=== PATIENT | male | born 1955 | race Two or more races ===

== ENCOUNTER 2024-01-23 09:09 | Outpatient (RCR) | payer MEDICARE, SELFPAY ==
--- NOTE | 2024-01-24 06:24 | CTCFLWUP_ITS ---
[address] [address] FOLLOW UP NOTE DATE OF VISIT: 01/23/2024 NAME: VASQUEZ ASTORGA MR#: [id number] : 1955 AGE: 68 DIAGNOSIS: Left lower extremity DVT and PE currently on Lovenox. 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 S/p s/p intramedullary nailing of the right femur fracture caused by metastatic lesion (06/02/2021). S/p radiation therapy to the right femur (07/28/2021 - 08/10/2021). Mr. Astorga received 3000 cGy radiat ion therapy. Left kidney clear-cell type renal cell carcinoma status post left nephrectomy 10/13/2003) Started on pembrolizumab and axitinib (09/23/2021?). Patient unable to tolerate axitinib. Currently he is being continued on pembrolizumab. 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 Currently he is on levothyroxine. REASON FOR TODAY?S VISIT: This is office follow-up visit. Mr. Astorga is here at [facility]. Patient complaining of nerve pain to bilateral feet, more on right inner ankle area, declini ng medication, plans to restart physical therapy soon which he found helpful previously. Patient fol lows up with Dr. Beltrán, taking hydrocodone as needed. MRI of abdomen with and without contrast showed benign right renal cyst, no abdominal lymphadenopathy. Patient on indefinite lovenox 120 mg daily fo r history of left lower DVT and PE on 10/05/2022, previously failed on Eliquis. Left lower extremity u ltrasound venous Doppler showed chronic nonocclusive thrombus in the left popliteal vein, (09/14/2023) . Patient on Xgeva monthly, last time patient received pembrolizumab was in 08/17/2023. Patient is t aking levothyroxine 225 mg daily, unfortunately we do not have recent thyroid labs. Patient would li ke to restart pembrolizumab. Patient reports he was taking a break due to recent of brother. Patient reports good appetite, does complain of feeling tired. Patient denies any cough, chest pain , abdominal pain, leg cramps, weight loss. Patient ambulating with help of a cane. HISTORY OF PRESENT ILLNESS: Vasquez Astorga is a 68-year-old ENG speaking male with following oncology history. 10/13/2003: Mr. Astorga had right nephrectomy for clear-cell type renal cell carcinoma? 05/31/2021: Mr. Astorga fell and injured his right thigh. X-rays were obtained 05/31/2021: CT scan of the pelvis without contrast 06/01/2021: CT scan of the chest abdomen and pelvis without contrast? 06/02/2021: Patient had intramedullary nailing of the right femur fracture with diagnostic biopsy of th e fracture. 07/28/2021 - 08/10/2021: Mr. Astorga had 3000 cGy radiation therapy to the right femur. 07/30/2021: PET/CT scan? 09/27/2021: CT scan of the chest with and without contrast? 04/05/2022: CT scan of the chest abdomen and pelvis with IV contrast 07/04/2022: Left lower extremity venogram? Mr. Astorga was started on Eliquis and discharged home 07/26/2022: Doppler ultrasound study of both lower extremities Eliquis was discontinued. Patient was started on Lovenox 120 mg SQ twice daily. 10/05/2022: CT scan of the chest abdomen and pelvis with IV contrast 11/14/2022: Bilateral lower EXTR. Doppler ultrasound study done PAST MEDICAL HISTORY: HTN High cholesterol Left kidney cancer- 2003 PAST SURGICAL HISTORY: Left nephrectomy - 2003 Nailing of Right Femur Fracture with biopsy - 08/24/21 TURP - 6 yrs ago [facility] MEDICATIONS: calcium Cozaar [losartan potassium] [place] 3 [omega-3 fatty acids/dha/epa/other omega-3s/fish oil] ibuprofen Vitamin D3 [cholecalciferol (vitamin d3)] hydroCHLOROthiazide betamethasone valerate HYDROcodone-acetaminophen MS Contin [morphine sulfate] enoxaparin levothyroxine Medication last reconciled by Gina RODRIGUEZ on 12/05/2023 ALLERGIES: Simvastatin REVIEW OF SYSTEMS Neurological: No headache, seizures or blurring of vision. Gastrointestinal: No nausea, vomiting, diarrhea or constipation. Cardiovascular: No palpitations or angina pains. Respiratory: No cough, chest pain or shortness of breath. VITAL SIGNS: Date Time PHYSICAL EXAMINATION: Conjunctivae is white Oral cavity: No Lesions. Chest is clear to auscultation. No wheezes or rales audible. CVS: Rhythm regular, no murmurs. Abdomen is soft. No hepatosplenomegaly. Extremities: No pedal edema. No cyanosis. Ambulating with assistance of cane. LABORATORY DATA: Date Time ASSESSMENT AND PLAN: #1. Left kidney clear-cell type renal cell carcinoma status post left nephrectomy 10/13/2003 Metastatic clear-cell renal cell carcinoma with bone mets and possible pulmonary mets (06/02/2021). S/p intramedullary nailing of the right femur fracture caused by metastatic lesion (06/02/2021). S/p radiation therapy to the right femur (07/28/2021 - 08/10/2021). Mr. Astorga received 3000 cGy radiat ion therapy. Patient was on pembrolizumab and axitinib (09/23/2021?08/17/2023). Patient unable to tolerate axitin ib. Currently on break from pembrolizumab, last time patient received medication was on 08/17/2023. Patie nt was taking a break from medication, patient was on bereavement due to of patient's brother. He wants to restart keytruda in feb 2024 Continue Xgeva (09/23/2021?) MRI of abdomen with and without contrast showed benign right renal cyst, 10/02/2023.. Restart pembrolizumab. Brain MRI with and without contrast is negative . Follow-up with Dr. Perry in 3 weeks. #2. Hypothyroidism likely from immunotherapy pembrolizumab. Currently he is on levothyroxine 225mg daily. TSH was 27.09 and T4 was 1.32, (10/24/2023). No recent thyroid labs. TSH and T4 today. Repeat TSH and T4 a few days prior to follow-up appointment. Refer to endocrinology #3. Bilateral feet peripheral neuropathy, more on right anterior ankle, declining medication, tolerab le. Patient planning to restart physical therapy for right leg that he has previously found helpful. Following up with Dr. Beltrán, thanks hydrocodone as needed for pain. #2. Left lower extremity DVT and PE, (10/05/2022). Currently on indefinite anticoagulation, continue Lovenox 120mg subcutaneous daily. Patient previously declined to continue with Lovenox 120 mg subcutaneous twice daily due to high copa yment cost. Failed on Eliquis. Ultrasound venous Doppler left lower extremity showed chronic nonocclusive thrombus in the left popli teal vein, (09/14/2023). Wears compression stockings. Electronically Signed by: {Object.Sanct_ID2*PnP.NameFL}, {Object.Sanct_ID2*PnP.Suffix} on {Object.Emery ct_Date2@d01b} at {Object.Sanct_Time2@t3b} cc: Gabby Seay, Referring: Roman Seay This document was completed utilizing speech recognition software. Grammatical errors, random word in sertions, pronoun errors, and incomplete sentences are an occasional consequence of this system due t o software limitations, ambient noise, and hardware issues. Any formal questions or concerns about e content, text or information contained within the body of this dictation should be directly address ed to the provider for clarification. Patient: VASQUEZ ASTORGA : 1955 MR#: [id number] FOLLOW UP NOTE Page 1 of 14
== END 2024-01-27 23:59 | disposition home or self-care (01) ==
LOC: SCTC 09:09
PROVIDERS: PCP Specialist; Referring Provider Specialist; Visit Provider Internal Medicine Hematology & Oncology
DX: C64.2 Malignant neoplasm of left kidney, except renal pelvis (principal); C79.51 Secondary malignant neoplasm of bone; Z86.718 Personal history of other venous thrombosis and embolism; Z79.01 Long term (current) use of anticoagulants; Z92.3 Personal history of irradiation; E03.9 Hypothyroidism, unspecified; G62.9 Polyneuropathy, unspecified
CPT/HCPCS: 99212; G0463

== ENCOUNTER 2024-03-14 08:40 | Outpatient (RCR) | payer MEDICARE, SELFPAY ==
[2024-03-04 16:16] LABS: Basophils % (Auto) 1 % (0-2.5); Eosinophils # (Auto) 0.2 Thou/mm3 (0.0-0.5); Eosinophils % (Auto) 3 % (0-10); Hematocrit 43.9 % (41.0-53.0); Hemoglobin 15.2 g/dL (13.5-16.0); Immature Granulocytes % (Auto) 0 % (0-0); Immature Granulocytes Auto 0.02 Thou/mm3 (0.00-0.00); Lymphocytes # (Auto) 1.6 Thou/mm3 (1.0-4.8); Lymphocytes % (Auto) 24 % (10-50); Mean Corpuscular HGB Conc 34.6 g/dl (31.0-37.0); Mean Corpuscular Hemoglobin 30.6 pg (25.0-35.0); Mean Corpuscular Volume 89 fL (80-100); Monocytes % (Auto) 15 % (0-12); Neutrophils # (Auto) 3.9 Thou/mm3 (1.8-7.7); Neutrophils % (Auto) 57 % (37-80); Nucleated Red Blood Cell % 0 /100 WBC (0); Platelet Count 179 Thou/mm3 (140-440); RDW Standard Deviation 45.2 fL (35.1-43.9); Red Blood Count 4.96 Miln/mm3 (4.50-5.90); White Blood Count 6.8 Thou/mm3 (3.8-10.6)
[2024-03-04 16:37] LABS: Alanine Aminotransferase 17 U/L (10-49); Albumin, Serum 4.3 gm/dL (3.4-4.8); Albumin/Globulin Ratio 1.5 (1.2-2.2); Alkaline Phosphatase 83 U/L (46-116); Anion Gap 9 (7-16); Aspartate Amino Transferase 19 U/L (0-34); BUN/Creatinine Ratio 15 Ratio (12-20); Bilirubin,Total 0.6 mg/dL (0.3-1.2); Blood Urea Nitrogen 16 mg/dL (9-23); Calcium 9.7 mg/dL (8.3-10.6); Calcium (Corrected) 9.7 mg/dL (8.5-10.1); Carbon Dioxide 24.7 mMol/L (20.0-31.0); Chloride 103 mMol/L (98-107); Creatinine (Component) 1.1 mg/dL (0.6-1.3); Free T4 (Free Thyroxine) 1.57 ng/dL (0.89-1.76); Globulin 2.9 gm/dL (2.3-3.5); Glucose 96 mg/dL (74-106); Osmolality,Calculated 275 (275-295); Potassium 3.8 mMol/L (3.4-5.1); Sodium 137 mMol/L (136-145); Thyroid Stimulating Hormone 5.05 uIU/mL (0.55-4.78); Total Protein 7.2 gm/dL (5.7-8.2); eGFR > 60 See Note
--- NOTE | 2024-03-06 01:01 | CTCFLWUP_ITS ---
Patient: VASQUEZ ASTORGA : 1955 Page 2 of 3 FOLLOW UP NOTE DATE OF SERVICE: 03/05/2024 NAME: VASQUEZ ASTORGA ACCOUNT: [id number] : 1955 AGE: 68 INTERVAL HISTORY: Patient is here for follow-up. Patient is not on any therapy. He was unable to tolerate Inlyta and do not want to start therapy and here to discuss the scan results ONCOLOGY HISTORY: DIAGNOSIS: Secondary malignant neoplasm of bone [ICD10] C79.51 DATE OF DIAGNOSIS: 10/13/200305/2021 stage IV STAGE/TNM: Now metastatic TREATMENT HISTORY: Care?Plan Start?Date Cycle Day Intent KEYTRUDA?200 09/23/2021 1 21 Palliative Xgeva?120?mg?q?monthly?for?3?months,?followed?by?q?3?months 09/23/2021 1 90 Palliative Xgeva?120?mg?q?3?months 11/16/2022 1 90 Palliative HISTORY OF PRESENT ILLNESS: Vasquez Astorga is a 68-year-old ENG speaking male with following oncology history. 10/13/2003: Mr. Astorga had right nephrectomy for clear-cell type renal cell carcinoma? 05/31/2021: Mr. Astorga fell and injured his right thigh. X-rays were obtained 05/31/2021: CT scan of the pelvis without contrast 06/01/2021: CT scan of the chest abdomen and pelvis without contrast? 06/02/2021: Patient had intramedullary nailing of the right femur fracture with diagnostic biopsy of th e fracture. 07/28/2021 - 08/10/2021: Mr. Astorga had 3000 cGy radiation therapy to the right femur. 07/30/2021: PET/CT scan? 09/27/2021: CT scan of the chest with and without contrast? 04/05/2022: CT scan of the chest abdomen and pelvis with IV contrast 07/04/2022: Left lower extremity venogram? Mr. Astorga was started on Eliquis and discharged home 07/26/2022: Doppler ultrasound study of both lower extremities Eliquis was discontinued. Patient was started on Lovenox 120 mg SQ twice daily. 10/05/2022: CT scan of the chest abdomen and pelvis with IV contrast 11/14/2022: Bilateral lower EXTR. Doppler ultrasound study done OTHER MEDICAL HISTORY/CONDITIONS: HTN High cholesterol Left kidney cancer- 2003 Left nephrectomy - 2003 Nailing of Right Femur Fracture with biopsy - 08/24/21 TURP - 6 yrs ago [facility] FAMILY HISTORY: Patient?denies?family?cancer?history. 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 betamethasone valerate - 0.1 % Monday 2. calcium - 500 mg 1 tab Daily 3. Cozaar - 100 mg 1 tab Daily 4. enoxaparin - 120 mg/0.8 mL 120 mg Daily 5. hydroCHLOROthiazide - 12.5 mg 1 Capsule Daily 6. HYDROcodone-acetaminophen - 10-325 mg 1 tab every 6 hours for 30 Days 7. ibuprofen - 800 mg 1 tab As needed 8. levothyroxine - 75 mcg 3.5 tab Daily 9. MS Contin - 15 mg 1 tab every 8 hours 10. [place] 3 - 350-400 mg 1 Capsule Daily 11. terbinafine HCl - 250 mg 1 tab Daily 12. Vitamin D3 - 400 unit 1 Capsule Daily Medications Last Reconciled by Gina Brantley MA on 03/05/2024 ALLERGIES: Simvastatin REVIEW OF SYSTEMS: A complete 14-point review of systems was performed and is negative except as noted in interval histo ry. PHYSICAL EXAMINATION: VITAL SIGNS: Temperature?98.2, B/P?122/74, Oxygen?Saturation?93% Weight?305.8?lbs (Change?since? 5:?7.8?lbs) PAIN: 0 - No pain ECOG Performance Status: 0 - Asymptomatic and fully active GENERAL APPEARANCE: Appears well, in no apparent distress, appropriately interactive. HEENT: Normocephalic, no temporal wasting, normal conjunctiva, no scleral icterus, normal hearing, li ps without lesions, neck normal range of motion. CARDIOVASCULAR: Not assessed. PULMONARY: Normal respiratory effort, no respiratory distress or use of accessory muscles, speaking i n full sentences, no tachypnea. EXTREMITIES: No pedal edema or cyanosis. SKIN: Normal skin appearance. NEUROLOGIC: Alert and oriented x4. PSHYCHIATRIC: Appropriate affect, mood normal, behavior normal, intact thought and speech. LABORATORY DATA: I have personally reviewed and interpreted each of the patient?s relevant lab tests, abnormal finding s are below: Date 03/04/24 ??WHITE?BLOOD?COUNT?(Thou/mm3) 6.8 ??RED?BLOOD?COUNT?(Miln/mm3) 4.96 ??HEMOGLOBIN?(gm/dl) 15.2 ??HEMATOCRIT?(%) 43.9 ??PLATELET?COUNT?(Thou/mm3) 179 ??NEUTROPHILS?%,?AUTO?(%) 57 ??LYMPH?%,?AUTO?(%) 24 ??NEUTROPHILS,?AUTO?(Thou/mm3) 3.9 ASSESSMENT/PLAN: 1.)Left kidney clear-cell type renal cell carcinoma status post left nephrectomy 10/13/2003 Metastat ic clear-cell renal cell carcinoma with bone mets and possible pulmonary mets (06/02/2021). S/p intram eduilary nailing of the right femur fracture caused by metastatic lesion (06/02/2021). S/p radiation t herapy to the right femur (07/28/2021 - ). Mr. Astorga received 3000 cGy radiation therapy. Alberto khanna was on pembrolizumab and axitinib (09/23/2021-08/17/2023). Patient unable to tolerate axitinib. Currently on break from pembrolizumab, last time patient received medication was on 08/17/2023. Patie nt was taking a break from medication, patient was on bereavement due to of patient's brother. He wants to restart keytruda in feb 2024 Continue Xgeva (09/23/2021-) MRI of abdomen with and without contrast showed benign right renal cyst. .. 2)Hypothyroidism likely from immunotherapy pembrolizumab. Currently he is on levothyroxine 225mg junior ly. TSH was 27.09 and T4 was 1.32, (10/24/2023). No recent thyroid labs. TSH and T4 today. Repeat TSH and T4 a few days prior to follow-up appointment. Refer to endocrinology 3. Bilateral feet peripheral neuropathy. more on right anterior ankle. declining medication, tolerabl e. Patient planning to restart physical therapy for right leg that he has previously found helpful. F ollowing up with Dr. Beltrán, thanks hydrocodone as needed angela pain. 4) Left lower extremity DW and PE. (10/05/2022). Currently on indefinite anticoaguiation, continue Maritza enox 120mg subcutaneous daily. Patient previously declined to continue with Lovenox 120 mg subcutane ous twice daily due to high copayment cost. Failed on Eliquis. Ultrasound venous Doppler left lower extremity showed chronic nonocclusive thrombus in the left popliteal vein, (09/14/2023). Wears compre ssion stockings. ORDERS: Cbc RETURN TO CLINIC: BILLING AND COMPLIANCE: I reviewed external records from providers outside my specialty as summarized above. I spent a total of 50 minutes on this patient?s care on the day of their visit excluding time spent related to any bi lled procedures. This time includes time spent with the patient as well as time spent documenting in the medical record, reviewing patients records and tests, obtaining history, placing orders, communi cating with other healthcare professionals, counseling the patient, family or caregiver, and/or care coordination for the diagnoses above. Electronically Signed by: Josh Perry MD T: 12:59 AM CC: Debby,? PCP: Roman Seay Referring: Roman Seay This document was completed utilizing speech recognition software. Grammatical errors, random word in sertions, pronoun errors, and incomplete sentences are an occasional consequence of this system due t o software limitations, ambient noise, and hardware issues. Any formal questions or concerns about th e content, text or information contained within the body of this dictation should be directly address ed to the provider for clarification.
== END 2024-03-29 23:59 | disposition home or self-care (01) ==
LOC: SCTC 08:40
PROVIDERS: Internal Medicine Hematology & Oncology; PCP Specialist; Referring Provider Specialist; Visit Provider Radiology Therapeutic Radiology
DX: C79.51 Secondary malignant neoplasm of bone (principal); M84.451D Pathological fracture, right femur, subsequent encounter for fracture with routine healing; E03.9 Hypothyroidism, unspecified; Z79.890 Hormone replacement therapy; G62.9 Polyneuropathy, unspecified; Z92.3 Personal history of irradiation; Z85.528 Personal history of other malignant neoplasm of kidney; Z90.5 Acquired absence of kidney; Z86.718 Personal history of other venous thrombosis and embolism; Z79.01 Long term (current) use of anticoagulants; Z86.711 Personal history of pulmonary embolism
CPT/HCPCS: 36415; 80053; 84439; 84443; 85025; 96372; 99212; 99213; J0897; G0463

== ENCOUNTER → 2024-03-21 | Outpatient (CLI) | payer MEDICARE, SELFPAY ==
[2024-03-21 14:16] LABS: Glucose Estimated Average 117 mg/dL (80-131); Hemoglobin A1C 5.7 % Hgb (4.8-6.0)
[2024-03-21 14:23] LABS: Free T3 2.9 pg/mL (2.3-4.2); Free T4 (Free Thyroxine) 1.68 ng/dL (0.89-1.76); Thyroid Stimulating Hormone 2.74 uIU/mL (0.55-4.78)
== END | disposition home or self-care (01) ==
LOC: COPL 12:48
PROVIDERS: PCP Specialist; Referring Provider Specialist; Visit Provider Specialist
DX: E03.8 Other specified hypothyroidism (principal); E03.9 Hypothyroidism, unspecified; R73.01 Impaired fasting glucose; Z86.39 Personal history of other endocrine, nutritional and metabolic disease
CPT/HCPCS: 36415; 83036; 84439; 84443; 84481

== ENCOUNTER → 2024-06-05 | Outpatient (CLI) | payer MEDICARE, SELFPAY ==
[2024-06-05 10:30] LABS: Basophils % (Auto) 1 % (0-2.5); Eosinophils # (Auto) 0.2 Thou/mm3 (0.0-0.5); Eosinophils % (Auto) 3 % (0-10); Hematocrit 47.2 % (41.0-53.0); Hemoglobin 16.1 g/dL (13.5-16.0); Immature Granulocytes % (Auto) 1 % (0-0); Immature Granulocytes Auto 0.03 Thou/mm3 (0.00-0.00); Lymphocytes % (Auto) 33 % (10-50); Mean Corpuscular HGB Conc 34.1 g/dl (31.0-37.0); Mean Corpuscular Hemoglobin 29.7 pg (25.0-35.0); Mean Corpuscular Volume 87 fL (80-100); Monocytes # (Auto) 0.7 Thou/mm3 (0.0-0.8); Monocytes % (Auto) 11 % (0-12); Neutrophils # (Auto) 3.1 Thou/mm3 (1.8-7.7); Neutrophils % (Auto) 52 % (37-80); Nucleated Red Blood Cell % 0 /100 WBC (0); Platelet Count 167 Thou/mm3 (140-440); RDW Standard Deviation 45.7 fL (35.1-43.9); Red Blood Count 5.43 Miln/mm3 (4.50-5.90); White Blood Count 5.9 Thou/mm3 (3.8-10.6)
[2024-06-05 10:54] LABS: Alanine Aminotransferase 18 U/L (10-49); Albumin, Serum 4.1 gm/dL (3.4-4.8); Albumin/Globulin Ratio 1.6 (1.2-2.2); Alkaline Phosphatase 88 U/L (46-116); Anion Gap 9 (7-16); Aspartate Amino Transferase 18 U/L (0-34); BUN/Creatinine Ratio 14 Ratio (12-20); Bilirubin,Total 0.5 mg/dL (0.3-1.2); Blood Urea Nitrogen 15 mg/dL (9-23); Calcium 9.5 mg/dL (8.3-10.6); Calcium (Corrected) 9.5 mg/dL (8.5-10.1); Carbon Dioxide 26.2 mMol/L (20.0-31.0); Chloride 107 mMol/L (98-107); Creatinine (Component) 1.1 mg/dL (0.6-1.3); Globulin 2.6 gm/dL (2.3-3.5); Glucose 93 mg/dL (74-106); Osmolality,Calculated 283 (275-295); Sodium 142 mMol/L (136-145); Total Protein 6.7 gm/dL (5.7-8.2); eGFR > 60 See Note
== END | disposition home or self-care (01) ==
LOC: SCTO 09:55
PROVIDERS: PCP Specialist; Referring Provider Internal Medicine Hematology & Oncology; Visit Provider Internal Medicine Hematology & Oncology
DX: C64.2 Malignant neoplasm of left kidney, except renal pelvis (principal); C79.51 Secondary malignant neoplasm of bone
CPT/HCPCS: 36415; 80053; 85025

== ENCOUNTER 2024-06-25 12:57 | Outpatient (RCR) | payer MEDICARE, SELFPAY ==
--- NOTE | 2024-06-11 09:40 | CTCFLWUP_ITS ---
Francis Guzmán [facility] [address] [place], [place] [address] FOLLOW-UP NOTE Date: 06/11/2024 MR#: [id number] Name: MELY SULLIVAN : 1955 Dx: C79.51 Secondary malignant neoplasm of bone Identification. Patient with renal cell CA with bone mets. Initial left nephrectomy for clear-cell type renal cell 10/13/2023 believed to be stage I and received no adjuvant therapy. Pathological fracture right femur underwent ORIF 06/07/2021. Postop XRT 3000 cGy completed August 10, 2021. Path metastatic renal cell Had PET scan 01/11/2024 showing incomplete healing of path fracture right femoral shaft with no hypermetabolic some in chest abdomen. Has some neuropathic symptoms lower extremities, generally improved only occasionally needing pain meds. A#1. History of left renal cell CA clear-cell type left nephrectomy 10/13/2023 no adjuvant therapy. #2. Right femur pathological fracture 06/02/2021 ORIF postop XRT right femur 3000 cGy completed July 2021 Path #3. On Xgeva currently not receiving pembrolizumab previously received. #4. History of left lower extremity DVT and PE on Lovenox. #5. Having minimal pain needing only occasional pain medications. I thus will see him in 6 months. Electronically signed by: Bishop Beltrán M.D. 06/11/2024 9:38 AM
== END 2024-06-26 23:59 | disposition home or self-care (01) ==
LOC: SCTC 12:57
PROVIDERS: PCP Specialist; Referring Provider Specialist; Visit Provider Nurse Practitioner Family
DX: C64.2 Malignant neoplasm of left kidney, except renal pelvis (principal); C79.51 Secondary malignant neoplasm of bone; Z90.5 Acquired absence of kidney; Z92.3 Personal history of irradiation; Z86.718 Personal history of other venous thrombosis and embolism; Z79.01 Long term (current) use of anticoagulants
CPT/HCPCS: 96372; 99212; J0897; G0463

== ENCOUNTER → 2024-06-25 | Outpatient (CLI) | payer MEDICARE, SELFPAY ==
[2024-06-25 15:12] LABS: Calcium, Ionized 4.7 mg/dL (4.6-5.6)
[2024-06-25 15:23] LABS: Glucose Estimated Average 126 mg/dL (80-131)
[2024-06-25 15:44] LABS: Cardiac Risk Estimate 8.9 RATIO (4.0-6.7); Cholesterol 295 mg/dL (132-200); Free T4 (Free Thyroxine) 1.29 ng/dL (0.89-1.76); HDL Cholesterol 33 mg/dL (40-60); Thyroid Stimulating Hormone 24.18 uIU/mL (0.55-4.78); Triglycerides 609 mg/dL (30-150)
== END | disposition home or self-care (01) ==
PROVIDERS: PCP Specialist; Referring Provider Specialist; Visit Provider Specialist
DX: E03.8 Other specified hypothyroidism (principal); E66.01 Morbid (severe) obesity due to excess calories; M85.89 Other specified disorders of bone density and structure, multiple sites; C40.22 Malignant neoplasm of long bones of left lower limb; Z86.39 Personal history of other endocrine, nutritional and metabolic disease
CPT/HCPCS: 36415; 80061; 82306; 82330; 83036; 83970; 84439; 84443

== ENCOUNTER → 2024-08-05 | Outpatient (CLI) | payer MEDICARE, SELFPAY ==
--- NOTE | 2024-08-05 11:00 | XR_ITS ---
EXAMINATION: PET/CT FUSION SKULL TO THIGH EXAM DATE AND TIME: August 05, 2024 1153 hours Comparison January 11, 2024, CT chest abdomen pelvis August 23, 2023 INDICATIONS: Diagnosis malignant neoplasm left kidney except renal pelvis, restaging post treatment CTDI:vol (mGy) 14.73 DLP: (mGycm) 1528.74 PROCEDURE: 15.25 mCi FDG was administered intravenously To allow for distribution and uptake of radiotracer, the patient was allowed to rest quietly in a shielded room. Imaging was performed on an integrated 16-slice PET/CT scanner, with scanning from the skull base to the mid thigh. Serum blood glucose at the time of the injection was measured 99 mg/dL. CT scanning was performed without oral or intravenous contrast material. FINDINGS: Head and Neck: There is no rebecca hypermetabolism in the neck. The visualized portions of the brain are normal in appearance on CT. Chest: There is no rebecca hypermetabolism in the chest. There are no pulmonary nodules. Abdomen and Pelvis: There is no rebecca hypermetabolism in retroperitoneal or pelvic chains. The spleen is normal in size and FDG avidity. Musculoskeletal: Marrow uptake is within normal range. IMPRESSION: No interval metastatic disease Recommend follow-up high-resolution CT chest, given the 6 mm pulmonary nodule depicted in the left lower lobe on the high-resolution CT chest August 23, 2023
== END | disposition home or self-care (01) ==
LOC: CDIM 10:37
PROVIDERS: PCP Specialist; Referring Provider Nurse Practitioner Family; Visit Provider Nurse Practitioner Family
DX: C79.51 Secondary malignant neoplasm of bone (principal); C64.2 Malignant neoplasm of left kidney, except renal pelvis
CPT/HCPCS: 78815; A9552

== ENCOUNTER → 2024-09-02 | Outpatient (CLI) | payer MEDICARE, SELFPAY ==
[2024-09-02 09:29] LABS: Basophils # (Auto) 0.0 Thou/mm3 (0.0-0.2); Basophils % (Auto) 1 % (0-2.5); Eosinophils # (Auto) 0.2 Thou/mm3 (0.0-0.5); Eosinophils % (Auto) 3 % (0-10); Hematocrit 45.1 % (41.0-53.0); Hemoglobin 15.7 g/dL (13.5-16.0); Immature Granulocytes Auto 0.04 Thou/mm3 (0.00-0.00); Lymphocytes # (Auto) 2.2 Thou/mm3 (1.0-4.8); Lymphocytes % (Auto) 28 % (10-50); Mean Corpuscular HGB Conc 34.8 g/dl (31.0-37.0); Mean Corpuscular Hemoglobin 30.7 pg (25.0-35.0); Mean Corpuscular Volume 88 fL (80-100); Monocytes # (Auto) 0.8 Thou/mm3 (0.0-0.8); Monocytes % (Auto) 10 % (0-12); Neutrophils # (Auto) 4.5 Thou/mm3 (1.8-7.7); Neutrophils % (Auto) 58 % (37-80); Nucleated Red Blood Cell # 0.00 Thou/mm3 (0.00-0.00); Nucleated Red Blood Cell % 0 /100 WBC (0); Platelet Count 206 Thou/mm3 (140-440); RDW Standard Deviation 47.2 fL (35.1-43.9); Red Blood Count 5.12 Miln/mm3 (4.50-5.90); White Blood Count 7.8 Thou/mm3 (3.8-10.6)
[2024-09-02 10:01] LABS: Alanine Aminotransferase 15 U/L (10-49); Albumin, Serum 4.3 gm/dL (3.4-4.8); Albumin/Globulin Ratio 1.5 (1.2-2.2); Alkaline Phosphatase 78 U/L (46-116); Anion Gap 12 (7-16); Aspartate Amino Transferase 16 U/L (0-34); BUN/Creatinine Ratio 13 Ratio (12-20); Bilirubin,Total 0.6 mg/dL (0.3-1.2); Blood Urea Nitrogen 16 mg/dL (9-23); Calcium 9.5 mg/dL (8.3-10.6); Calcium (Corrected) 9.5 mg/dL (8.5-10.1); Carbon Dioxide 25.2 mMol/L (20.0-31.0); Chloride 106 mMol/L (98-107); Creatinine (Component) 1.2 mg/dL (0.6-1.3); Free T3 2.7 pg/mL (2.3-4.2); Free T4 (Free Thyroxine) 1.72 ng/dL (0.89-1.76); Globulin 2.8 gm/dL (2.3-3.5); Glucose 98 mg/dL (74-106); Osmolality,Calculated 286 (275-295); Potassium 4.2 mMol/L (3.4-5.1); Sodium 143 mMol/L (136-145); Thyroid Stimulating Hormone 10.79 uIU/mL (0.55-4.78); Total Protein 7.1 gm/dL (5.7-8.2); eGFR > 60 See Note
== END | disposition home or self-care (01) ==
LOC: SCTO 07:55
PROVIDERS: PCP Nurse Practitioner Family; Referring Provider Specialist; Visit Provider Internal Medicine Hematology & Oncology
DX: C64.2 Malignant neoplasm of left kidney, except renal pelvis (principal); C79.51 Secondary malignant neoplasm of bone; E03.8 Other specified hypothyroidism
CPT/HCPCS: 36415; 80053; 84439; 84443; 84481; 85025

== ENCOUNTER → 2024-09-06 | Outpatient (CLI) | payer MEDICARE, SELFPAY ==
--- NOTE | 2024-09-06 | XR_ITS ---
Examination: Right femur 2 views Technique one AP lateral right femur 2 views Date and time: September 06, 2024 0811 hours INDICATIONS: Bone carcinoma diagnosis 2 years ago with pathologic fracture femur postop reduction internal fixation, persistent femur pain FINDINGS: Significant healing fracture proximal humeral shaft with permeative bone radiolucencies Orthopedic hardware satisfactory position Mild to moderate narrowing hip joint IMPRESSION: Partial healing pathologic fracture proximal shaft of the femur with satisfactory alignment If nonunion at the fracture site is a clinical consideration, suggest CT scan femur without contrast follow-up
== END | disposition home or self-care (01) ==
LOC: CDIM 07:41
PROVIDERS: PCP Specialist; Referring Provider Nurse Practitioner Family; Visit Provider Nurse Practitioner Family
DX: M84.451A Pathological fracture, right femur, initial encounter for fracture (principal); Z98.890 Other specified postprocedural states; C64.2 Malignant neoplasm of left kidney, except renal pelvis; C79.51 Secondary malignant neoplasm of bone
CPT/HCPCS: 73552

== ENCOUNTER → 2024-09-18 | Outpatient (CLI) | payer MEDICARE, SELFPAY ==
--- NOTE | 2024-09-18 14:30 | XR_ITS ---
Examination: CT chest with intravenous contrast CT chest without intravenous contrast 2-D reconstructions Date and time of exam:September 18, 2024 1437 hours Comparison August 23, 2023, PET CT scan August 05, 2024 INDICATIONS: Diagnosis malignant neoplasm left kidney with bone metastases including pathologic femur fracture, 6 mm pulmonary nodule left lower lobe on CT chest August 23, 2023, PET CT scan August 05, 2024 CTDI:vol (mGy) 40.9 DLP: (mGycm) 1705 Technique: Multiple axial sections of the thorax have been obtained. 3 mm slice thickness, from the hemidiaphragms to above the apices of the lungs. Mediastinal and lung density settings have been obtained. Intravenous contrast administered 60 cc Isovue-370. Noncontrast images have also been obtained. 2-D sagittal coronal images obtained. Low dose protocols were performed. One or more of the following dose reduction techniques were used; automated exposure control, adjustment of the mA and/or KV according to patient size, use of iterative reconstruction technique. Findings: No thoracic aortic aneurysm dilatation No pulmonary artery filling defects Heavy calcification left anterior descending coronary artery No paratracheal tracheobronchial or bronchopulmonary adenopathy 2 mm pulmonary nodule left upper lobe image 81 2 mm pulmonary nodule right upper lobe image 99 2 mm pulmonary nodule right upper lobe image 155 3 mm pulmonary nodule right lower lobe image 247 6 mm pulmonary nodule left lower lobe image 238 Cholelithiasis Prominent osteopenia IMPRESSION: Additional subcentimeter pulmonary nodules as above, suggest continued 6 month follow-up CT chest without contrast
== END | disposition home or self-care (01) ==
LOC: CCTX 14:12
PROVIDERS: PCP Specialist; Referring Provider Nurse Practitioner Family; Visit Provider Nurse Practitioner Family
DX: R91.8 Other nonspecific abnormal finding of lung field (principal); C79.51 Secondary malignant neoplasm of bone; C64.2 Malignant neoplasm of left kidney, except renal pelvis
CPT/HCPCS: 71270; A4649; Q9967

== ENCOUNTER 2024-09-26 13:10 | Outpatient (RCR) | payer MEDICARE, SELFPAY | END 2024-09-26 23:59 | disposition home or self-care (01) | LOC: SCTC 13:10 | PROVIDERS: PCP Specialist; Referring Provider Specialist; Visit Provider Nurse Practitioner Family | DX: C79.51 Secondary malignant neoplasm of bone (principal); Z85.528 Personal history of other malignant neoplasm of kidney; Z86.711 Personal history of pulmonary embolism; Z90.5 Acquired absence of kidney; Z92.3 Personal history of irradiation; R91.1 Solitary pulmonary nodule; E03.9 Hypothyroidism, unspecified; Z79.890 Hormone replacement therapy; G62.9 Polyneuropathy, unspecified; Z86.718 Personal history of other venous thrombosis and embolism; Z79.01 Long term (current) use of anticoagulants | CPT/HCPCS: 96372; 99212; J0897; G0463 ==

== ENCOUNTER → 2024-10-01 | Outpatient (CLI) | payer MEDICARE, SELFPAY ==
--- NOTE | 2024-10-01 | XR_ITS ---
Examination: Bone densitometry Date and time of exam:October 01, 2024 1455 hours INDICATIONS: 69-year-old male with diagnosis age related osteoporosis, right femur fracture 3 years ago, levothyroxine and 10 years Technique: Lumbar spine and hip total bone mineralization values of an calculated. Peak reference and age match control results have been displayed. Findings: Lumbar spine total bone mineralization is1.158 gm/cm2. This is 0.6 standard deviations above peak reference. This is 1.5 standard deviations above age-matched controls. Hip total bone mineralization is 1.161 gm/cm2 This is 0.8 standard deviations above peak reference. This is 1.5 standard deviations above age-matched controls Impression: There is normal mineralization based on lumbar spine measurements. There is normal mineralization based on hip measurements
== END | disposition home or self-care (01) ==
PROVIDERS: Referring Provider Specialist; Visit Provider Specialist
DX: M81.0 Age-related osteoporosis without current pathological fracture (principal)
CPT/HCPCS: 77080

== ENCOUNTER → 2024-11-08 | Outpatient (CLI) | payer MEDICARE, SELFPAY ==
[2024-11-08 08:28] LABS: Basophils # (Auto) 0.0 Thou/mm3 (0.0-0.2); Basophils % (Auto) 1 % (0-2.5); Eosinophils # (Auto) 0.2 Thou/mm3 (0.0-0.5); Eosinophils % (Auto) 3 % (0-10); Hematocrit 46.8 % (41.0-53.0); Hemoglobin 16.0 g/dL (13.5-16.0); Immature Granulocytes Auto 0.02 Thou/mm3 (0.00-0.00); Lymphocytes # (Auto) 2.0 Thou/mm3 (1.0-4.8); Lymphocytes % (Auto) 32 % (10-50); Mean Corpuscular HGB Conc 34.2 g/dl (31.0-37.0); Mean Corpuscular Hemoglobin 30.3 pg (25.0-35.0); Mean Corpuscular Volume 89 fL (80-100); Monocytes # (Auto) 0.6 Thou/mm3 (0.0-0.8); Monocytes % (Auto) 10 % (0-12); Neutrophils # (Auto) 3.6 Thou/mm3 (1.8-7.7); Neutrophils % (Auto) 55 % (37-80); Nucleated Red Blood Cell # 0.00 Thou/mm3 (0.00-0.00); Nucleated Red Blood Cell % 0 /100 WBC (0); Platelet Count 185 Thou/mm3 (140-440); RDW Standard Deviation 47.3 fL (35.1-43.9); Red Blood Count 5.28 Miln/mm3 (4.50-5.90); White Blood Count 6.5 Thou/mm3 (3.8-10.6)
[2024-11-08 08:49] LABS: Glucose Estimated Average 126 mg/dL (80-131); Hemoglobin A1C 6.0 % Hgb (4.8-6.0)
[2024-11-08 09:04] LABS: Alanine Aminotransferase 17 U/L (10-49); Albumin, Serum 4.1 gm/dL (3.4-4.8); Albumin/Globulin Ratio 1.5 (1.2-2.2); Alkaline Phosphatase 72 U/L (46-116); Anion Gap 12 (7-16); Aspartate Amino Transferase 19 U/L (0-34); BUN/Creatinine Ratio 11 Ratio (12-20); Bilirubin,Total 0.6 mg/dL (0.3-1.2); Blood Urea Nitrogen 12 mg/dL (9-23); Calcium 10.0 mg/dL (8.3-10.6); Calcium (Corrected) 10.0 mg/dL (8.5-10.1); Carbon Dioxide 24.2 mMol/L (20.0-31.0); Cardiac Risk Estimate 6.4 RATIO (4.0-6.7); Chloride 105 mMol/L (98-107); Cholesterol 268 mg/dL (132-200); Creatinine (Component) 1.1 mg/dL (0.6-1.3); Free T4 (Free Thyroxine) 2.00 ng/dL (0.89-1.76); Globulin 2.7 gm/dL (2.3-3.5); Glucose 99 mg/dL (74-106); HDL Cholesterol 42 mg/dL (40-60); LDL Cholesterol,Calculated 147 mg/dL (0-130); Osmolality,Calculated 280 (275-295); Potassium 3.9 mMol/L (3.4-5.1); Sodium 141 mMol/L (136-145); Thyroid Stimulating Hormone 7.65 uIU/mL (0.55-4.78); Total Protein 6.8 gm/dL (5.7-8.2); Triglycerides 395 mg/dL (30-150); eGFR > 60 See Note
== END | disposition home or self-care (01) ==
LOC: COPL 07:19
PROVIDERS: PCP Specialist; Referring Provider Internal Medicine Endocrinology, Diabetes & Metabolism; Visit Provider Internal Medicine Endocrinology, Diabetes & Metabolism
DX: E03.9 Hypothyroidism, unspecified (principal); I10 Essential (primary) hypertension
CPT/HCPCS: 36415; 80053; 80061; 83036; 84439; 84443; 85025

== ENCOUNTER → 2024-11-25 | Outpatient (CLI) | payer MEDICARE, SELFPAY ==
--- NOTE | 2024-11-25 15:30 | XR_ITS ---
Examination: CT right femur without contrast. 2-D sagittal reconstructions. 2-D coronal reconstructions. 3-D reconstructions. Date and time of exam:November 25, 2024, 1508 hours INDICATIONS: Diagnosis malignant neoplasm left kidney, femur pain 3 years, diagnosis secondary malignant neoplasm bone, pathologic fracture right femur diagnosis 2 years ago operative reduction internal fixation CTDI: vol (mGy):19.5 DLP: (mGycm):1263 Technique: Multiple 1.25 mm axial sections of the right femur without intravenous contrast have been obtained. 2-D sagittal and coronal reconstructions have been obtained. 3-D reconstructions have been obtained. Low dose protocols were performed. One or more of the following dose reduction techniques were used; automated exposure control, adjustment of the mA and/or KV according to patient size, use of iterative reconstruction technique. Findings: Status post operative reduction internal fixation pathologic appearing fracture proximal right femoral shaft Prominent bone destruction at the fracture site coronal image 78, axial image 105 with nonunion at the fracture site Intramedullary escobar satisfactory position Severe osteopenia Hips intact IMPRESSION: Status post operative reduction internal fixation pathologic fracture proximal right femoral shaft Prominent osteolytic bone destruction at the fracture site with nonunion
== END | disposition home or self-care (01) ==
PROVIDERS: Referring Provider Nurse Practitioner Family; Visit Provider Nurse Practitioner Family
DX: M84.451A Pathological fracture, right femur, initial encounter for fracture (principal); M89.8X5 Other specified disorders of bone, thigh; C79.51 Secondary malignant neoplasm of bone; C64.2 Malignant neoplasm of left kidney, except renal pelvis
CPT/HCPCS: 73700